=== PATIENT | male | born 1950 | race Caucasian/White ===

== ENCOUNTER 2017-10-08 18:11 | Inpatient (IN) | payer MEDICARE, OTHER ==
[~2017-10-08] VITALS: Ht 188 cm; Wt 117.0 kg
[2017-10-08] MEDS ORDERED: SODIUM CHLORIDE FLUSH 10ML SYR IVF ONE (19:00)
[2017-10-08] MEDS ORDERED: SODIUM CHLORIDE 0.9% 1,000ML IVBOLUS ONE (19:00)
[2017-10-08 19:25] LABS: HEMATOCRIT 42.4 % (39.2-51.8); HEMOGLOBIN 14.4 g/dL (13.7-18.0); WHITE BLOOD COUNT 10.4 x10^3/uL (3.4-10)
[2017-10-08] MEDS ORDERED: PHARMACOKINETIC CONSULTATION MC ONE ×2 (19:30→21:30)
[2017-10-08] MEDS ORDERED: VANCOMYCIN 2,000 MG in SODIUM CHLORIDE 0.9% 500 ML IV SCH (19:30)
[2017-10-08] MEDS ORDERED: PIPERACILLIN/TAZO/PMX 3.375GM 50 ML IV ONE (19:30)
[2017-10-08] MEDS ORDERED: VANCOMYCIN PER PHARMACY IV ONE (19:30)
[2017-10-08 19:33] LABS: ASPARTATE AMINO TRANSFERASE 13 U/L (15-37); BLOOD UREA NITROGEN 21 mg/dL (7-18)
[2017-10-08 19:39] LABS: DIFF TOTAL CELLS COUNTED 100 CELL DIFF
[2017-10-08] MEDS ORDERED: LISI5TAB7 PO (19:42)
[2017-10-08] MEDS ORDERED: INSU100C SQ-INSULIN (19:42)
[2017-10-08] MEDS ORDERED: INSU100V8 SQ (19:42)
[2017-10-08 19:44] LABS: VERIFY COUNTS? YES
[2017-10-08 19:45] LABS: ANISOCYTOSIS 1+; LARGE PLATELETS 1+; POLYCHROMASIA 1+
[2017-10-08] MEDS ORDERED: PIPERACILLIN/TAZO/PMX 3.375GM 50 ML ONE (19:57)
[2017-10-08] MEDS ORDERED: SODIUM CHLORIDE 0.9% 1,000 ML IV ONE (19:58)
[2017-10-08] MEDS ORDERED: ONDANSETRON 2MG/ML, 2ML IVPush PRN ×2 (20:00→20:30)
[2017-10-08] MEDS: SODIUM CHLORIDE 0.9% 1,000 ML IV SCH (20:19)
[2017-10-08] MEDS ORDERED: VANCOMYCIN PER PHARMACY MC PRN (20:30)
[2017-10-08] MEDS ORDERED: VANCOMYCIN 2,000 MG in SODIUM CHLORIDE 0.9% 500 ML IV ONE (20:30)
[2017-10-08] MEDS ORDERED: POLYETHYLENE GLYCOL 17 GM PACKET PO PRN (20:30)
[2017-10-08] MEDS ORDERED: OXYcodone IR 5MG TABLET PO PRN (20:30)
[2017-10-08] MEDS ORDERED: ACETAMINOPHEN 325 MG TABLET PO PRN (20:30)
[2017-10-08] MEDS ORDERED: BISACODYL 10 MG SUPP PR PRN (20:30)
[2017-10-08] MEDS ORDERED: morphine SULFATE 10 MG/ML, 1ML IVPush PRN (20:30)
[2017-10-08] MEDS: PIPERACILLIN/TAZO/PMX 3.375GM 50 ML IV SCH (20:30)
[2017-10-08] MEDS ORDERED: PHARMACOKINETIC MONITORING MC PRN (21:30)
[2017-10-08] MEDS: INSULIN ASPART 100 UNITS/ML, PEN SQ-INSULIN SCH (22:24)
[2017-10-08] MEDS: HEPARIN 5,000 UNITS/ML, 1ML SQ SCH (22:24)
[2017-10-08] MEDS: INSULIN DETEMIR 100 UNITS/ML, PEN SQ-INSULIN SCH (22:25)
[2017-10-09] MEDS: SODIUM CHLORIDE 0.9% 1,000 ML IV SCH ×2 (00:07→14:26)
[2017-10-09 02:59] VITALS: BP 110/70
[2017-10-09] MEDS: PIPERACILLIN/TAZO/PMX 3.375GM 50 ML IV SCH ×4 (03:00→23:05)
[2017-10-09 05:30] LABS: BLOOD UREA NITROGEN 21 mg/dL (7-18)
[2017-10-09 05:33] LABS: ASPARTATE AMINO TRANSFERASE 16 U/L (15-37)
[2017-10-09 05:58] LABS: HEMOGLOBIN 12.6 g/dL (13.7-18.0); WHITE BLOOD COUNT 9.8 x10^3/uL (3.4-10)
[2017-10-09] MEDS: HEPARIN 5,000 UNITS/ML, 1ML SQ SCH ×3 (06:30→23:05)
[2017-10-09 07:46] LABS: DIFF TOTAL CELLS COUNTED 100 CELL DIFF
[2017-10-09 07:49] LABS: ANISOCYTOSIS 1+; POLYCHROMASIA 1+; VERIFY COUNTS? YES
[2017-10-09 07:59] VITALS: BP 126/80
[2017-10-09] MEDS: SENNA/DOCUSATE TABLET PO SCH (08:26)
[2017-10-09] MEDS: INSULIN ASPART 100 UNITS/ML, PEN SQ-INSULIN SCH ×4 (08:26→21:00)
[2017-10-09] MEDS ORDERED: GADOBUTROL 10 MMOL/10 ML PFS ONE (08:40)
[2017-10-09] MEDS: LISINOPRIL 5 MG TABLET PO SCH (10:58)
[2017-10-09] MEDS: INSULIN DETEMIR 100 UNITS/ML, PEN SQ-INSULIN SCH ×2 (12:40→21:08)
[2017-10-09 14:15] VITALS: BP 137/78
[2017-10-09] MEDS: VANCOMYCIN 2,000 MG in SODIUM CHLORIDE 0.9% 500 ML IV SCH (14:26)
[2017-10-09 19:17] VITALS: BP 147/85
[2017-10-10 01:00] VITALS: BP 123/62
[2017-10-10] MEDS: SODIUM CHLORIDE 0.9% 1,000 ML IV SCH ×2 (03:39→20:00)
[2017-10-10] MEDS: PIPERACILLIN/TAZO/PMX 3.375GM 50 ML IV SCH ×4 (05:16→20:39)
[2017-10-10 05:50] LABS: BLOOD UREA NITROGEN 18 mg/dL (7-18)
[2017-10-10 05:51] LABS: HEMATOCRIT 36.1 % (39.2-51.8); HEMOGLOBIN 12.4 g/dL (13.7-18.0); WHITE BLOOD COUNT 8.3 x10^3/uL (3.4-10)
[2017-10-10] MEDS: HEPARIN 5,000 UNITS/ML, 1ML SQ SCH ×3 (06:47→22:58)
[2017-10-10] MEDS: INSULIN ASPART 100 UNITS/ML, PEN SQ-INSULIN SCH ×4 (07:27→22:36)
[2017-10-10] MEDS: VANCOMYCIN 2,000 MG in SODIUM CHLORIDE 0.9% 500 ML IV SCH (08:26)
[2017-10-10] MEDS: LISINOPRIL 5 MG TABLET PO SCH (08:27)
[2017-10-10] MEDS: INSULIN DETEMIR 100 UNITS/ML, PEN SQ-INSULIN SCH ×2 (08:27→22:59)
[2017-10-10] MEDS: SENNA/DOCUSATE TABLET PO SCH (08:27)
[2017-10-10 08:32] VITALS: BP 144/81
[2017-10-10] MEDS ORDERED: LORazepam 2 MG/ML, 1ML IVPush PRN (09:00)
[2017-10-10 13:25] VITALS: BP 144/81
[2017-10-10] MEDS ORDERED: BUPIVACAINE/PF 0.5% ONE (16:27)
[2017-10-10] MEDS ORDERED: FENTANYL PF 100 MCG/2ML ONE ×2 (16:34→16:56)
[2017-10-10] MEDS ORDERED: MIDAZOLAM 1 MG/ML, 2ML ONE (16:34)
[2017-10-10] MEDS ORDERED: PROPOFOL 10 MG/ML, 20ML ONE (16:45)
[2017-10-10] MEDS ORDERED: OXYcodone 5 MG/5 ML ORAL.SOL UDC PO PRN (17:00)
[2017-10-10] MEDS ORDERED: BUPIVACAINE/PF 0.5% INFIL ONE (17:00)
[2017-10-10] MEDS ORDERED: ONDANSETRON 2MG/ML, 2ML IVPush PRN (17:00)
[2017-10-10] MEDS ORDERED: LABETALOL 5MG/ML, 20ML IV PRN (17:00)
[2017-10-10] MEDS ORDERED: FENTANYL PF 100 MCG/2ML IV PRN (17:00)
[2017-10-10] MEDS ORDERED: ACETAMINOPHEN 325 MG TABLET PO PRN (17:00)
[2017-10-10] MEDS ORDERED: ACETAMINOPHEN 650 MG/20.3 ML UDC ONE (17:45)
[2017-10-10] MEDS ORDERED: OXYcodone 5 MG/5 ML ORAL.SOL UDC ONE (17:45)
[2017-10-10 19:40] VITALS: BP 104/62
[2017-10-11 00:10] VITALS: BP 129/74
[2017-10-11] MEDS: PIPERACILLIN/TAZO/PMX 3.375GM 50 ML IV SCH ×4 (01:56→19:34)
[2017-10-11] MEDS: SODIUM CHLORIDE 0.9% 1,000 ML IV SCH ×2 (02:00→19:35)
[2017-10-11 04:02] VITALS: BP 152/94
[2017-10-11] MEDS: HEPARIN 5,000 UNITS/ML, 1ML SQ SCH ×3 (06:18→20:42)
[2017-10-11] MEDS: INSULIN ASPART 100 UNITS/ML, PEN SQ-INSULIN SCH ×4 (06:25→20:41)
[2017-10-11 08:10] VITALS: BP 148/90
[2017-10-11] MEDS: LISINOPRIL 5 MG TABLET PO SCH (08:35)
[2017-10-11] MEDS: SENNA/DOCUSATE TABLET PO SCH (08:35)
[2017-10-11] MEDS ORDERED: VANCOMYCIN 2,000 MG in SODIUM CHLORIDE 0.9% 500 ML IV SCH (09:00)
[2017-10-11] MEDS: INSULIN DETEMIR 100 UNITS/ML, PEN SQ-INSULIN SCH ×2 (09:59→21:00)
[2017-10-11] MEDS ORDERED: PNEUMOC 13-VALENT VACC, 0.5 ML IM-VACC SCH (13:00)
[2017-10-11 13:35] VITALS: BP 143/92
[2017-10-11 19:55] VITALS: BP 143/77
[2017-10-12] MEDS: PIPERACILLIN/TAZO/PMX 3.375GM 50 ML IV SCH ×2 (02:04→07:59)
[2017-10-12 02:09] VITALS: BP 148/78
[2017-10-12] MEDS: SODIUM CHLORIDE 0.9% 1,000 ML IV SCH (05:30)
[2017-10-12 05:56] LABS: HIV 1&2 ANTIBODY SCREEN Nonreactive (Nonreactive); HIV-1 p24 ANTIGEN Nonreactive (Nonreactive)
[2017-10-12] MEDS: HEPARIN 5,000 UNITS/ML, 1ML SQ SCH ×3 (06:24→22:31)
[2017-10-12] MEDS: INSULIN ASPART 100 UNITS/ML, PEN SQ-INSULIN SCH ×4 (06:30→21:00)
[2017-10-12 07:25] VITALS: BP 161/89
[2017-10-12] MEDS: INSULIN DETEMIR 100 UNITS/ML, PEN SQ-INSULIN SCH ×2 (07:59→21:00)
[2017-10-12] MEDS: SENNA/DOCUSATE TABLET PO SCH (08:00)
[2017-10-12] MEDS: LISINOPRIL 5 MG TABLET PO SCH (08:00)
[2017-10-12] MEDS ORDERED: INSULIN DETEMIR 100 UNITS/ML, PEN SQ-INSULIN SCH (09:00)
[2017-10-12] MEDS: CEFAZOLIN PMX 2GM/50ML 50 ML IV SCH ×2 (11:30→19:39)
[2017-10-12 15:56] VITALS: BP 148/92
[2017-10-12 20:00] VITALS: BP 151/75
[2017-10-13] MEDS: D5%-0.45NACL+KCL 20MEQ 1,000 ML IV SCH ×2 (00:26→13:20)
[2017-10-13 02:05] VITALS: BP 148/81
[2017-10-13] MEDS: CEFAZOLIN PMX 2GM/50ML 50 ML IV SCH ×3 (03:57→19:53)
[2017-10-13] MEDS: HEPARIN 5,000 UNITS/ML, 1ML SQ SCH ×3 (06:30→23:01)
[2017-10-13 06:47] VITALS: BP 158/75
[2017-10-13] MEDS: INSULIN ASPART 100 UNITS/ML, PEN SQ-INSULIN SCH ×4 (07:45→21:07)
[2017-10-13] MEDS: SENNA/DOCUSATE TABLET PO SCH (07:46)
[2017-10-13] MEDS: INSULIN DETEMIR 100 UNITS/ML, PEN SQ-INSULIN SCH ×2 (07:46→21:08)
[2017-10-13] MEDS: LISINOPRIL 5 MG TABLET PO SCH (07:46)
[2017-10-13] MEDS ORDERED: MIDAZOLAM 1 MG/ML, 2ML ONE (07:49)
[2017-10-13] MEDS ORDERED: FENTANYL PF 100 MCG/2ML ONE (07:49)
[2017-10-13] MEDS ORDERED: CEFAZOLIN 1,000 MG ONE (08:03)
[2017-10-13] MEDS ORDERED: ONDANSETRON 2MG/ML, 2ML ONE (08:03)
[2017-10-13] MEDS ORDERED: PROPOFOL 10 MG/ML, 20ML ONE (08:03)
[2017-10-13] MEDS ORDERED: LACTATED RINGERS 1,000 ML IV SCH (08:51)
[2017-10-13] MEDS ORDERED: LACTATED RINGERS 1,000 ML IVBOLUS PRN (09:00)
[2017-10-13 15:14] VITALS: BP 155/74
[2017-10-13 19:16] VITALS: BP 139/73
[2017-10-14 01:23] VITALS: BP 158/89
[2017-10-14] MEDS: D5%-0.45NACL+KCL 20MEQ 1,000 ML IV SCH ×2 (03:57→14:26)
[2017-10-14] MEDS: CEFAZOLIN PMX 2GM/50ML 50 ML IV SCH ×3 (03:57→20:23)
[2017-10-14 04:31] LABS: BLOOD UREA NITROGEN 12 mg/dL (7-18)
[2017-10-14 04:33] LABS: HEMATOCRIT 34.5 % (39.2-51.8); HEMOGLOBIN 11.9 g/dL (13.7-18.0); WHITE BLOOD COUNT 7.6 x10^3/uL (3.4-10)
[2017-10-14] MEDS: INSULIN ASPART 100 UNITS/ML, PEN SQ-INSULIN SCH ×4 (05:48→21:29)
[2017-10-14] MEDS: HEPARIN 5,000 UNITS/ML, 1ML SQ SCH ×3 (05:51→22:38)
[2017-10-14 06:43] VITALS: BP 166/90
[2017-10-14] MEDS: LISINOPRIL 10 MG TABLET PO SCH (09:11)
[2017-10-14] MEDS: SENNA/DOCUSATE TABLET PO SCH (09:12)
[2017-10-14] MEDS: INSULIN DETEMIR 100 UNITS/ML, PEN SQ-INSULIN SCH ×2 (09:12→21:29)
[2017-10-14 12:59] VITALS: BP 150/78
[2017-10-14 20:18] VITALS: BP 163/71
[2017-10-15 03:11] VITALS: BP 165/78
[2017-10-15] MEDS: CEFAZOLIN PMX 2GM/50ML 50 ML IV SCH ×3 (04:18→19:43)
[2017-10-15] MEDS: D5%-0.45NACL+KCL 20MEQ 1,000 ML IV SCH ×2 (05:56→14:17)
[2017-10-15] MEDS: HEPARIN 5,000 UNITS/ML, 1ML SQ SCH ×3 (05:56→21:21)
[2017-10-15 08:06] VITALS: BP 156/81
[2017-10-15] MEDS: SENNA/DOCUSATE TABLET PO SCH (08:11)
[2017-10-15] MEDS: INSULIN ASPART 100 UNITS/ML, PEN SQ-INSULIN SCH ×4 (08:11→21:00)
[2017-10-15] MEDS: LISINOPRIL 10 MG TABLET PO SCH (08:11)
[2017-10-15] MEDS: INSULIN DETEMIR 100 UNITS/ML, PEN SQ-INSULIN SCH ×2 (08:15→21:22)
[2017-10-15 13:33] VITALS: BP 161/82
[2017-10-15 18:54] VITALS: BP 145/73
[2017-10-16 03:59] VITALS: BP 145/70
[2017-10-16] MEDS: HEPARIN 5,000 UNITS/ML, 1ML SQ SCH ×3 (04:00→19:52)
[2017-10-16] MEDS: CEFAZOLIN PMX 2GM/50ML 50 ML IV SCH ×3 (04:00→19:52)
[2017-10-16 04:12] VITALS: BP 145/70
[2017-10-16 05:26] LABS: HEMATOCRIT 35.9 % (39.2-51.8); HEMOGLOBIN 12.2 g/dL (13.7-18.0); WHITE BLOOD COUNT 7.4 x10^3/uL (3.4-10)
[2017-10-16 05:59] LABS: ASPARTATE AMINO TRANSFERASE 25 U/L (15-37); BLOOD UREA NITROGEN 10 mg/dL (7-18)
[2017-10-16] MEDS: INSULIN ASPART 100 UNITS/ML, PEN SQ-INSULIN SCH ×4 (06:06→21:12)
[2017-10-16] MEDS: D5%-0.45NACL+KCL 20MEQ 1,000 ML IV SCH ×2 (06:07→19:01)
[2017-10-16 07:43] VITALS: BP 155/89
[2017-10-16] MEDS: INSULIN DETEMIR 100 UNITS/ML, PEN SQ-INSULIN SCH ×2 (08:26→21:13)
[2017-10-16] MEDS: LISINOPRIL 10 MG TABLET PO SCH (08:28)
[2017-10-16] MEDS: SENNA/DOCUSATE TABLET PO SCH (08:29)
[2017-10-16] MEDS: AMLODIPINE 2.5 MG TABLET PO SCH (11:16)
[2017-10-16 14:13] VITALS: BP 173/90
[2017-10-16 16:00] VITALS: BP 145/82
[2017-10-16 19:35] VITALS: BP 151/79
[2017-10-17 02:57] VITALS: BP 158/88
[2017-10-17] MEDS: CEFAZOLIN PMX 2GM/50ML 50 ML IV SCH ×2 (04:03→12:00)
[2017-10-17] MEDS: HEPARIN 5,000 UNITS/ML, 1ML SQ SCH ×2 (04:04→12:00)
[2017-10-17] MEDS: INSULIN ASPART 100 UNITS/ML, PEN SQ-INSULIN SCH ×2 (06:30→12:40)
[2017-10-17 07:25] VITALS: BP 149/79
[2017-10-17] MEDS ORDERED: INSU100I28 SQ-INSULIN ×2 (08:38)
[2017-10-17] MEDS ORDERED: AMLO5TAB2 PO (08:38)
[2017-10-17] MEDS ORDERED: LISI-167 PO (08:38)
[2017-10-17] MEDS ORDERED: INSU100I18 SQ-INSULIN (08:38)
[2017-10-17] MEDS ORDERED: CEFA2PLA9 IV (08:40)
[2017-10-17] MEDS: SENNA/DOCUSATE TABLET PO SCH (10:25)
[2017-10-17] MEDS: LISINOPRIL 10 MG TABLET PO SCH (10:25)
[2017-10-17] MEDS: AMLODIPINE 2.5 MG TABLET PO SCH (10:25)
[2017-10-17] MEDS: INSULIN DETEMIR 100 UNITS/ML, PEN SQ-INSULIN SCH (10:26)
[2017-10-17 12:44] VITALS: BP 157/85
== END 2017-10-17 13:30 | DRG 255 ==
LOC: ED 19:50 → EDIP 20:20 → 4NOR 21:02
PROVIDERS: ADMIT Hospitalist; ATTEND Hospitalist
PROC: 0Y6R0Z2 Detachment at Right 2nd Toe, Mid, Open Approach (ICD-10-PCS; principal; 2017-10-10 16:00)
PROC: 02HV33Z Insertion of Infusion Device into Superior Vena Cava, Percutaneous Approach (ICD-10-PCS; 2017-10-12)
PROC: B5181ZA Fluoroscopy of Superior Vena Cava using Low Osmolar Contrast, Guidance (ICD-10-PCS; 2017-10-12)
PROC: B548ZZA Ultrasonography of Superior Vena Cava, Guidance (ICD-10-PCS; 2017-10-12)
PROC: 0JBQ0ZZ Excision of Right Foot Subcutaneous Tissue and Fascia, Open Approach (ICD-10-PCS; 2017-10-13)
DX: E11.52 Type 2 diabetes mellitus with diabetic peripheral angiopathy with gangrene (principal); N17.0 Acute kidney failure with tubular necrosis; E44.0 Moderate protein-calorie malnutrition; M86.171 Other acute osteomyelitis, right ankle and foot; R78.81 Bacteremia; L03.115 Cellulitis of right lower limb; E11.22 Type 2 diabetes mellitus with diabetic chronic kidney disease; E87.1 Hypo-osmolality and hyponatremia; E11.40 Type 2 diabetes mellitus with diabetic neuropathy, unspecified; Z68.33 Body mass index [BMI] 33.0-33.9, adult; B95.1 Streptococcus, group B, as the cause of diseases classified elsewhere; B96.89 Other specified bacterial agents as the cause of diseases classified elsewhere; D64.9 Anemia, unspecified; E11.649 Type 2 diabetes mellitus with hypoglycemia without coma; E11.69 Type 2 diabetes mellitus with other specified complication; E66.9 Obesity, unspecified; E11.621 Type 2 diabetes mellitus with foot ulcer; E11.65 Type 2 diabetes mellitus with hyperglycemia; E87.6 Hypokalemia; I12.9 Hypertensive chronic kidney disease with stage 1 through stage 4 chronic kidney disease, or unspecified chronic kidney disease; L97.519 Non-pressure chronic ulcer of other part of right foot with unspecified severity; B95.61 Methicillin susceptible Staphylococcus aureus infection as the cause of diseases classified elsewhere; N18.3 Chronic kidney disease, stage 3 (moderate); Z79.4 Long term (current) use of insulin; Z79.899 Other long term (current) drug therapy; Z82.49 Family history of ischemic heart disease and other diseases of the circulatory system; Z83.3 Family history of diabetes mellitus; Z28.21 Immunization not carried out because of patient refusal
CPT/HCPCS: 36415; 36569; 71010; 76937; 77001; 80048; 80053; 80202; 81001; 82962; 83036; 83605; 84145; 85025; 85651; 86140; 86141; 86703; 86803; 87040; 87070; 87075; 87077; 87147; 87176; 87181; 87186; 87205; 87899; 88305; 93005; 93922; 96365; 96368; 96375; A9585; J0690; J1644; J1815; J2250; J2405; J2543; J2704; J3010; J3370; J3490; C1751; G0435; J3480; J7030; J7040

== ENCOUNTER 2018-02-12 09:36 | Emergency (ER) | payer MEDICARE, OTHER ==
[~2018-02-12] VITALS: Ht 188 cm; Wt 115.9 kg
[~2018-02-12 09:36] MED LIST: ACID1TAB7 PO; AMLO5TAB2 PO; ATOR20TA9 PO; CEFA2PLA9 IV; INSU100C SQ-INSULIN; INSU100I13 SC; INSU100I18 SQ-INSULIN; INSU100I28 SQ-INSULIN; INSU100V8 SQ; LINE600T7 PO; LISI-167 PO; LISI-420 PO; LISI5TAB7 PO; METF500T9 PO; VANC125C2 PO; VANC1VIA3 PO
[2018-02-12] MEDS ORDERED: FIDA200T PO (10:12)
[2018-02-12] MEDS ORDERED: L.AC1CAP6 PO (10:12)
[2018-02-12] MEDS ORDERED: SODIUM CHLORIDE FLUSH 10ML SYR IVF ONE (10:30)
[2018-02-12] MEDS ORDERED: SODIUM CHLORIDE 0.9% 1,000ML IVBOLUS ONE ×2 (10:30→11:30)
[2018-02-12 10:58] LABS: BASOPHILS # (AUTO) 0.05 x10^3/uL (0-0.1); BASOPHILS % (AUTO) 1 % (0-1); EOSINOPHILS # (AUTO) 0.29 x10^3/uL (0-0.4); EOSINOPHILS % (AUTO) 4 % (1-7); LYMPHOCYTES # (AUTO) 1.72 x10^3/uL (1-3.4); LYMPHOCYTES % (AUTO) 22 % (22-44); MD NO; MEAN CORPUSCULAR HGB CONC 33.8 g/dL (33.2-36.2); MEAN CORPUSCULAR VOLUME 91.6 fL (81-97); MEAN PLATELET VOLUME 8.8 fL (7.4-10.4); MONOCYTES # (AUTO) 0.99 x10^3/uL (0.2-0.8); MONOCYTES % (AUTO) 12 % (2-9); NEUTROPHILS # (AUTO) 4.95 x10^3/uL (1.8-6.8); NEUTROPHILS % (AUTO) 62 % (42-75); PLATELET COUNT 225 x10^3/uL (130-400); RED BLOOD COUNT 4.78 x10^6/uL (4.38-5.82)
[2018-02-12 11:09] LABS: ALBUMIN 3.6 g/dL (3.4-5.0); ANION GAP 6 mmol/L (5-15); CALCIUM 8.4 mg/dL (8.5-10.1); CHLORIDE 104 mmol/L (98-107); CREATININE 1.35 mg/dL (0.7-1.3)
[2018-02-12 13:22] VITALS: BP 117/88
== END 2018-02-12 13:24 | disposition home or self-care (01) ==
LOC: ED 11:58
DX: A04.71 Enterocolitis due to Clostridium difficile, recurrent (principal); N28.9 Disorder of kidney and ureter, unspecified; E11.65 Type 2 diabetes mellitus with hyperglycemia; E78.5 Hyperlipidemia, unspecified; Z89.429 Acquired absence of other toe(s), unspecified side
CPT/HCPCS: 36415; 80048; 82040; 85025; 96360; 99284; J7030

== ENCOUNTER 2018-04-10 23:34 | Emergency (ER) | payer MEDICARE, OTHER ==
[~2018-04-10] VITALS: Ht 188 cm; Wt 117.7 kg
[~2018-04-10 23:34] MED LIST changes: +FIDA200T PO; +L.AC1CAP6 PO
[2018-04-11 00:20] LABS: BASOPHILS # (AUTO) 0.08 x10^3/uL (0-0.1); BASOPHILS % (AUTO) 1 % (0-1); EOSINOPHILS % (AUTO) 3 % (1-7); LYMPHOCYTES # (AUTO) 2.44 x10^3/uL (1-3.4); LYMPHOCYTES % (AUTO) 27 % (22-44); MD NO; MEAN CORPUSCULAR HEMOGLOBIN 31.5 pg (27.5-34.5); MEAN CORPUSCULAR HGB CONC 34.5 g/dL (33.2-36.2); MEAN CORPUSCULAR VOLUME 91.3 fL (81-97); MEAN PLATELET VOLUME 8.8 fL (7.4-10.4); MONOCYTES # (AUTO) 1.14 x10^3/uL (0.2-0.8); MONOCYTES % (AUTO) 13 % (2-9); NEUTROPHILS # (AUTO) 5.08 x10^3/uL (1.8-6.8); NEUTROPHILS % (AUTO) 56 % (42-75); PLATELET COUNT 246 x10^3/uL (130-400); RED BLOOD COUNT 4.62 x10^6/uL (4.38-5.82); RED CELL DISTRIBUTION WIDTH 13.6 % (9.4-14.8)
[2018-04-11 00:30] LABS: ALANINE AMINOTRANSFERASE 30 U/L (12-78); ALBUMIN 3.5 g/dL (3.4-5.0); ANION GAP 7 mmol/L (5-15); CALCIUM 8.7 mg/dL (8.5-10.1); CHLORIDE 105 mmol/L (98-107); CREATININE 1.54 mg/dL (0.7-1.3)
[2018-04-11 00:33] LABS: ALKALINE PHOSPHATASE 81 U/L (45-117); BILIRUBIN,TOTAL 0.6 mg/dL (0.2-1.0); TOTAL PROTEIN 7.8 g/dL (6.4-8.2)
[2018-04-11 01:13] VITALS: BP 169/94
== END 2018-04-11 01:36 | disposition home or self-care (01) ==
LOC: ED 23:49
DX: R19.7 Diarrhea, unspecified (principal); E11.22 Type 2 diabetes mellitus with diabetic chronic kidney disease; N18.9 Chronic kidney disease, unspecified; E78.5 Hyperlipidemia, unspecified
CPT/HCPCS: 36415; 80053; 85025; 99284

== ENCOUNTER → 2018-06-15 | Outpatient (CLI) | payer MEDICARE, OTHER ==
[~2018-06-15] MED LIST changes: +LINE600T33 PO; -LINE600T7 PO
== END | disposition home or self-care (01) ==
LOC: STAR 13:25
PROVIDERS: ATTEND Internal Medicine Geriatric Medicine
DX: Z01.818 Encounter for other preprocedural examination (principal); I21.9 Acute myocardial infarction, unspecified
CPT/HCPCS: 93005

== ENCOUNTER → 2020-02-25 | Outpatient (CLI) | payer MEDICARE, OTHER ==
[~2020-02-25] MED LIST changes: +AMLO-150 PO; -AMLO5TAB2 PO; +ATOR20TA37 PO; -ATOR20TA9 PO; +LINE600T15 PO; -LINE600T33 PO; +METF500T12 PO; -METF500T9 PO; -VANC125C2 PO; +VANC125C3 PO
== END | disposition home or self-care (01) ==
LOC: CFH 09:25
PROVIDERS: ATTEND Internal Medicine Nephrology
DX: E11.22 Type 2 diabetes mellitus with diabetic chronic kidney disease (principal); E11.65 Type 2 diabetes mellitus with hyperglycemia; I12.9 Hypertensive chronic kidney disease with stage 1 through stage 4 chronic kidney disease, or unspecified chronic kidney disease; N18.3 Chronic kidney disease, stage 3 (moderate)
CPT/HCPCS: 76770